=== PATIENT | female | born 1950 | race Caucasian/White ===

== ENCOUNTER 2019-03-16 02:57 | Inpatient (IN) | payer OTHER, BC ==
[~2019-03-16] VITALS: Ht 170.2 cm; Wt 57.2 kg
[2019-03-16 03:00] VITALS: BP_SYST 104
[2019-03-16] MEDS ORDERED: ONDANSETRON HCL 4 MG/2 ML VIAL ONE ×2 (03:45→12:34)
[2019-03-16] MEDS ORDERED: NACL 0.9% 1,000 ML IV ONE ×2 (04:00→05:45)
[2019-03-16] MEDS ORDERED: ONDANSETRON HCL 4 MG/2 ML VIAL IVP ONE (04:00)
[2019-03-16 04:05] LABS: BASOPHILS % (AUTO) 0.3 % (0.0-2.0); EOSINOPHILS % (AUTO) 0.2 % (0.0-4.0); HEMATOCRIT 31.7 % (36-48); HEMOGLOBIN 10.1 g/dL (12.0-16.0); LYMPHOCYTES # (AUTO) 0.7 K/uL (1.0-5.5); LYMPHOCYTES % (AUTO) 9.1 % (20.5-51.5); MEAN CORPUSCULAR HEMOGLOBIN 27 pg (27-31); MEAN CORPUSCULAR HGB CONC 32 % (32-36); MEAN CORPUSCULAR VOLUME 85 fL (79.0-98.0); MONOCYTES # (AUTO) 0.9 K/uL (0.0-1.0); MONOCYTES % (AUTO) 11.7 % (1.7-9.3); NEUTROPHILS % (AUTO) 78.7 % (40.0-70.0); PLATELET COUNT (AUTO) 150 K/uL (130-430); RED BLOOD CELL COUNT(AUTO) 3.73 MIL/uL (4.2-6.2); RED CELL DISTRIBUTION WIDTH 20.2 % (9.0-15.0); WHITE BLOOD COUNT (AUTO) 7.6 K/uL (4.8-10.8)
[2019-03-16 04:09] LABS: CALCIUM 9.4 mg/dL (8.4-11.0); CREATININE 0.93 mg/dL (0.55-1.30); POTASSIUM 3.8 mmol/L (3.5-5.1)
[2019-03-16 04:14] LABS: ALBUMIN 1.7 g/dL (3.4-4.8); TOTAL BILIRUBIN 0.7 mg/dL (0.0-1.0)
[2019-03-16] MEDS ORDERED: KETOROLAC TROMETHAMINE 15 MG VIAL IVP ONE (05:00)
[2019-03-16 06:10] LABS: BILIRUBIN,URINE 2+ (NEGATIVE); BLOOD, URINE NEGATIVE (NEGATIVE); CLARITY/URINE CLEAR (CLEAR); COLOR,URINE YELLOW (YELLOW); GLUCOSE,URINE NEGATIVE (NEGATIVE); KETONES,URINE 1+ (NEGATIVE); LEUKOCYTE ESTERASE ,URINE NEGATIVE (NEGATIVE); NITRITE, URINE NEGATIVE (NEGATIVE); PH,URINE 5.5 (5.0-8.0); PROTEIN URINE 1+ (NEGATIVE)
[2019-03-16 06:16] LABS: BACTERIA,URINE FEW /HPF (None Seen); COARSE GRANULAR CASTS,URINE 0-10 /LPF (None Seen); HYALINE CASTS, URINE 0-10 /LPF (None Seen); RBC,URINE 0-3 /HPF (0-3); WBC,URINE 0-3 /HPF (0-3)
[2019-03-16] MEDS ORDERED: D5NS 1,000 ML IV SCH (07:00)
[2019-03-16 07:48] VITALS: BP_SYST 117
[2019-03-16] MEDS ORDERED: MORPHINE 2 MG/ML INJ. SYRINGE IVP PRN (10:00)
[2019-03-16 10:42] LABS: PHOSPHORUS 2.7 mg/dL (2.7-4.5); THYROID STIMULATING HORMONE 1.9 uIu/mL (0.34-4.82)
[2019-03-16] MEDS: NACL 0.9% 1,000 ML IV SCH ×2 (11:03→22:37)
[2019-03-16 12:10] VITALS: BP_SYST 110
[2019-03-16] MEDS ORDERED: ONDANSETRON HCL 4 MG/2 ML VIAL IVP PRN (12:15)
[2019-03-16] MEDS ORDERED: LEVE500T9 PO (14:55)
[2019-03-16] MEDS ORDERED: OXYC20TA55 PO (14:55)
[2019-03-16] MEDS ORDERED: PERC10 PO (14:55)
[2019-03-16] MEDS ORDERED: ALBUTEROL SULFATE 0.083% 2.5 MG/3 ML VIAL.NEB INH PRN (15:15)
[2019-03-16] MEDS ORDERED: IPRATROPIUM BROM 0.5 MG/2.5 ML VIAL.NEB (ATROVENT) INH PRN (15:15)
[2019-03-16] MEDS: KETOROLAC TROMETHAMINE 30 MG VIAL IVP PRN (15:55)
[2019-03-16 16:04] VITALS: BP_SYST 117
[2019-03-16 16:10] VITALS: BP_SYST 121
[2019-03-16] MEDS: IPRATROPIUM BROM 0.5 MG/2.5 ML VIAL.NEB (ATROVENT) INH SCH ×2 (19:44→23:05)
[2019-03-16] MEDS: ALBUTEROL SULFATE 0.083% 2.5 MG/3 ML VIAL.NEB INH SCH ×2 (19:44→23:05)
[2019-03-16 20:00] VITALS: BP_SYST 109
[2019-03-16] MEDS: OXYCODONE/ACETAMINOPHEN *10*mg/325 mg TABLET PO PRN (20:00)
[2019-03-16] MEDS: DOCUSATE SODIUM 100 MG CAPSULE PO SCH (20:01)
[2019-03-16] MEDS: oxyCODONE HCL 10 MG TAB.ER.12H PO SCH (20:01)
[2019-03-16] MEDS: levETIRAcetam 500 MG TABLET PO SCH (20:01)
[2019-03-17 00:33] VITALS: BP_SYST 98
[2019-03-17] MEDS: IPRATROPIUM BROM 0.5 MG/2.5 ML VIAL.NEB (ATROVENT) INH SCH ×6 (03:00→23:28)
[2019-03-17] MEDS: ALBUTEROL SULFATE 0.083% 2.5 MG/3 ML VIAL.NEB INH SCH ×6 (03:00→23:28)
[2019-03-17 06:08] LABS: BASOPHILS % (AUTO) 0.5 % (0.0-2.0); EOSINOPHILS % (AUTO) 0.9 % (0.0-4.0); HEMATOCRIT 28.9 % (36-48); HEMOGLOBIN 9.2 g/dL (12.0-16.0); LYMPHOCYTES # (AUTO) 0.8 K/uL (1.0-5.5); LYMPHOCYTES % (AUTO) 15.9 % (20.5-51.5); MEAN CORPUSCULAR HEMOGLOBIN 27 pg (27-31); MEAN CORPUSCULAR HGB CONC 32 % (32-36); MEAN CORPUSCULAR VOLUME 86 fL (79.0-98.0); MONOCYTES # (AUTO) 0.6 K/uL (0.0-1.0); MONOCYTES % (AUTO) 12.7 % (1.7-9.3); NEUTROPHILS # (AUTO) 3.6 K/uL (1.8-7.7); PLATELET COUNT (AUTO) 119 K/uL (130-430); RED BLOOD CELL COUNT(AUTO) 3.37 MIL/uL (4.2-6.2); RED CELL DISTRIBUTION WIDTH 20.3 % (9.0-15.0)
[2019-03-17 06:30] LABS: ALANINE AMINOTRANSFERASE 17 U/L (12-78); ALBUMIN 1.4 g/dL (3.4-4.8); ASPARTATE AMINOTRANSFERASE 93 U/L (10-37); CALCIUM 8.8 mg/dL (8.4-11.0); CHLORIDE 107 mmol/L (98-107); CHOLESTEROL 92 mg/dL (<200); CREATININE 0.85 mg/dL (0.55-1.30); GLUCOSE 83 mg/dL (70-99); HDL CHOLESTEROL 18 mg/dL (>55); LDL CHOLESTEROL 54 mg/dL (<100); PHOSPHORUS 2.6 mg/dL (2.7-4.5); POTASSIUM 4.3 mmol/L (3.5-5.1); SODIUM SERUM 135 mmol/L (136-145); TOTAL BILIRUBIN 0.5 mg/dL (0.0-1.0); TRIGLYCERIDES 130 mg/dL (30-150); UREA NITROGEN, BLOOD 21 mg/dL (8-21)
[2019-03-17 06:41] LABS: ANION GAP < 3 (5-15); GFR AFRICAN AMERICAN 85 mL/min (>90)
[2019-03-17] MEDS: OXYCODONE/ACETAMINOPHEN *10*mg/325 mg TABLET PO PRN ×4 (06:51→22:26)
[2019-03-17 07:20] LABS: WHITE BLOOD COUNT (AUTO) 5.1 K/uL (4.8-10.8)
[2019-03-17 08:06] VITALS: BP_SYST 124
[2019-03-17] MEDS: oxyCODONE HCL 10 MG TAB.ER.12H PO SCH ×2 (08:58→16:48)
[2019-03-17] MEDS: levETIRAcetam 500 MG TABLET PO SCH ×2 (08:59→20:43)
[2019-03-17] MEDS: PANTOPRAZOLE SODIUM 40 MG TAB PO SCH (08:59)
[2019-03-17] MEDS: DOCUSATE SODIUM 100 MG CAPSULE PO SCH ×2 (08:59→20:42)
[2019-03-17] MEDS: HEPARIN SODIUM,PORCINE 5000 UNITS/ML VIAL SUBCUT SCH ×2 (09:03→20:44)
[2019-03-17 09:19] LABS: TOTAL IRON BIND. CAPACITY 107 ug/dL (250-450)
[2019-03-17] MEDS ORDERED: SOD FERRIC GLUC COMPLEX/SUC 125 MG in NS 100 ML IV ONE (09:45)
[2019-03-17] MEDS: NACL 0.9% 1,000 ML IV SCH (10:49)
[2019-03-17 12:05] VITALS: BP_SYST 107
[2019-03-17 17:31] VITALS: BP_SYST 118
[2019-03-17] MEDS: KETOROLAC TROMETHAMINE 30 MG VIAL IVP PRN (18:27)
[2019-03-17 20:00] VITALS: BP_SYST 96
[2019-03-18 00:33] VITALS: BP_SYST 101
[2019-03-18] MEDS: oxyCODONE HCL 10 MG TAB.ER.12H PO SCH ×2 (01:00→08:39)
[2019-03-18] MEDS: NACL 0.9% 1,000 ML IV SCH (06:32)
[2019-03-18 06:35] LABS: BASOPHILS % (AUTO) 0.3 % (0.0-2.0); EOSINOPHILS % (AUTO) 0.4 % (0.0-4.0); HEMATOCRIT 31.6 % (36-48); LYMPHOCYTES # (AUTO) 0.9 K/uL (1.0-5.5); LYMPHOCYTES % (AUTO) 14.5 % (20.5-51.5); MEAN CORPUSCULAR HEMOGLOBIN 27 pg (27-31); MEAN CORPUSCULAR HGB CONC 32 % (32-36); MEAN CORPUSCULAR VOLUME 87 fL (79.0-98.0); MONOCYTES # (AUTO) 0.7 K/uL (0.0-1.0); MONOCYTES % (AUTO) 11.5 % (1.7-9.3); NEUTROPHILS # (AUTO) 4.6 K/uL (1.8-7.7); NEUTROPHILS % (AUTO) 73.3 % (40.0-70.0); PLATELET COUNT (AUTO) 153 K/uL (130-430); RED BLOOD CELL COUNT(AUTO) 3.65 MIL/uL (4.2-6.2); RED CELL DISTRIBUTION WIDTH 20.4 % (9.0-15.0); WHITE BLOOD COUNT (AUTO) 6.2 K/uL (4.8-10.8)
[2019-03-18] MEDS: KETOROLAC TROMETHAMINE 30 MG VIAL IVP PRN (06:50)
[2019-03-18 06:52] LABS: CALCIUM 9.7 mg/dL (8.4-11.0); CREATININE 0.88 mg/dL (0.55-1.30); PHOSPHORUS 2.7 mg/dL (2.7-4.5); POTASSIUM 5.1 mmol/L (3.5-5.1)
[2019-03-18 07:44] VITALS: BP_SYST 98
[2019-03-18] MEDS: ALBUTEROL SULFATE 0.083% 2.5 MG/3 ML VIAL.NEB INH SCH ×3 (08:34→16:33)
[2019-03-18] MEDS: IPRATROPIUM BROM 0.5 MG/2.5 ML VIAL.NEB (ATROVENT) INH SCH ×3 (08:35→16:33)
[2019-03-18] MEDS: levETIRAcetam 500 MG TABLET PO SCH (08:35)
[2019-03-18] MEDS: DOCUSATE SODIUM 100 MG CAPSULE PO SCH (08:35)
[2019-03-18] MEDS: PANTOPRAZOLE SODIUM 40 MG TAB PO SCH (08:35)
[2019-03-18] MEDS: HEPARIN SODIUM,PORCINE 5000 UNITS/ML VIAL SUBCUT SCH (08:37)
[2019-03-18 11:26] VITALS: BP_SYST 94
[2019-03-18] MEDS: OXYCODONE/ACETAMINOPHEN *10*mg/325 mg TABLET PO PRN (12:23)
[2019-03-18 14:00] VITALS: BP_SYST 104
[2019-03-18 14:19] VITALS: BP_SYST 104
== END 2019-03-18 16:40 | disposition hospice, home (50) | DRG 843 ==
LOC: SED 02:57 → SMU 06:20
PROVIDERS: ADMIT Family Medicine; ATTEND Family Medicine
DX: C80.1 Malignant (primary) neoplasm, unspecified (principal); E43 Unspecified severe protein-calorie malnutrition; E87.1 Hypo-osmolality and hyponatremia; J96.10 Chronic respiratory failure, unspecified whether with hypoxia or hypercapnia; F11.20 Opioid dependence, uncomplicated; Z68.1 Body mass index [BMI] 19.9 or less, adult; C78.02 Secondary malignant neoplasm of left lung; C79.31 Secondary malignant neoplasm of brain; C78.7 Secondary malignant neoplasm of liver and intrahepatic bile duct; C79.51 Secondary malignant neoplasm of bone; C78.01 Secondary malignant neoplasm of right lung; E86.0 Dehydration; D64.9 Anemia, unspecified; G89.4 Chronic pain syndrome; R74.0 Nonspecific elevation of levels of transaminase and lactic acid dehydrogenase [LDH]; K21.9 Gastro-esophageal reflux disease without esophagitis; R91.1 Solitary pulmonary nodule; R91.8 Other nonspecific abnormal finding of lung field; E88.09 Other disorders of plasma-protein metabolism, not elsewhere classified; Z99.81 Dependence on supplemental oxygen; Z98.891 History of uterine scar from previous surgery; Z87.891 Personal history of nicotine dependence
CPT/HCPCS: 36415; 71045; 71100; 76700-TC; 80048; 80053; 80061; 81000-TC; 83036; 83540-TC; 83550-TC; 83735-TC; 83880; 84100-TC; 84443-TC; 85025; 93005; 94640; 94760; 96361; 96374; 96375; 97116-GP; 97530-GP; 99285; J1644; J1885; J2270; J2405; J2916; J7030; J7042; J7613